=== PATIENT | male | born 1980 | race Caucasian/White ===

== ENCOUNTER 2017-12-06 12:29 | Emergency (ER) | payer OTHER, BC ==
[~2017-12-06] VITALS: Ht 175.3 cm; Wt 78.6 kg
[~2017-12-06 12:29] MED LIST: FLEXERIL 1010 MG/TAB PO; NORCO 325 MG-51 TAB PO
[2017-12-06 12:31] VITALS: TEMP 99.3
[2017-12-06] MEDS ORDERED: VIVLODEX5 MG PO (12:33)
[2017-12-06] MEDS ORDERED: MELATONIN5 M1 SL (12:33)
[2017-12-06 13:19] LABS: HEMATOCRIT 45.3 % (42.0-52.0); HEMOGLOBIN 15.5 g/dl (13.5-18.0); MEAN CELL VOLUME 88 fl (80.0-100.0); MEAN CORPUSCULAR HEMOGLOBIN 30 pg (27.0-31.0); MEAN CORPUSCULAR HGB CONC 34 g/dl (33.0-37.0); MEAN PLATELET VOLUME 10.2 fl (7.4-10.4); PLATELET COUNT 195 K/mm3 (130-400); RED BLOOD COUNT 5.15 M/mm3 (4.20-5.60); REDCELL DISTRIBUTION WIDTH-CV 12.1 % (11.5-14.5)
[2017-12-06 13:34] LABS: ALBUMIN 4.8 gm/dL (3.5-5.0); CALCIUM 9.6 mg/dL (8.4-10.2); CREATININE, serum 0.95 mg/dL (0.66-1.25); POTASSIUM 3.9 mmol/L (3.4-5.0); TOTAL PROTEIN 7.6 gm/dL (6.4-8.2)
[2017-12-06 13:46] LABS: BAND 8 % (0-10); EOSINOPHIL 1 % (0-4); LYMPHOCYTE 2 % (20.0-51.0); NEUTROPHILS 86 % (42.0-75.2); PLATELET ESTIMATE NORMAL (NORMAL)
[2017-12-06] MEDS ORDERED: ROBAXIN 75750 MG/TAB (13:54)
[2017-12-06] MEDS ORDERED: LOMOTIL 0.025 M1 TAB PO (15:52)
[2017-12-06] MEDS ORDERED: ZOFRAN ODT4 MG PO (15:52)
[2017-12-06 16:08] VITALS: BP 117/77; PULSE 85
[2017-12-06 16:15] LABS: COLLECTION METHOD CLEAN CATCH
[2017-12-06 16:22] LABS: MUCOUS Present /lpf; PH 6 (5-8); SQUAMOUS EPITHELIAL 0-2 /hpf; URINE APPEARANCE Clear; URINE BACTERIA None Seen /hpf; URINE BILIRUBIN Negative (NEGATIVE); URINE BLOOD Negative (NEGATIVE); URINE COLOR Yellow; URINE GLUCOSE Negative (NEGATIVE); URINE KETONE Trace (NEGATIVE); URINE LEUKOCYTE ESTERASE Negative (NEGATIVE); URINE NITRATE Negative (NEGATIVE); URINE PROTEIN(semi-quant) Negative (NEGATIVE); URINE RBC 0-2 /hpf; URINE UROBILINOGEN Negative (NEGATIVE)
== END 2017-12-06 16:23 | disposition home or self-care (01) ==
LOC: COL.ER 12:29
PROVIDERS: Emergency Medicine
DX: K52.9 Noninfective gastroenteritis and colitis, unspecified (principal)
CPT/HCPCS: J2765; J3010; J7030; J7120